=== PATIENT | male | born 1995 | race Native Hawaiian/Other Pacific Islander ===

== ENCOUNTER 2021-06-01 11:45 | Inpatient (IN) | payer SELFPAY ==
[~2021-06-01] VITALS: Ht 172.7 cm; Wt 84.1 kg
[2021-06-01 13:17] LABS: HEMOGLOBIN 15.7 g/dl (13.5-18.0); MEAN CELL VOLUME 85 fl (80.0-100.0); MEAN CORPUSCULAR HEMOGLOBIN 30 pg (27-31); MEAN CORPUSCULAR HGB CONC 35 g/dl (33.0-37.0); MEAN PLATELET VOLUME 11.1 fl (7.4-10.4); PLATELET COUNT 248 K/mm3 (130-400); RED BLOOD COUNT 5.31 M/mm3 (4.20-5.60); REDCELL DISTRIBUTION WIDTH-CV 13.6 % (11.5-14.5)
[2021-06-01 13:36] LABS: ALBUMIN 4.1 gm/dL (3.5-5.0); BAND 8 % (0-10); BILIRUBIN,TOTAL 1.1 mg/dL (0.2-1.2); C-REACTIVE PROTEIN 8.48 mg/dL (0.00-0.50); CALCIUM 9.4 mg/dL (8.4-10.2); CREATININE, serum 0.74 mg/dL (0.72-1.25); EOSINOPHIL 4 % (0-4); LYMPHOCYTE 7 % (20.0-51.0); NEUTROPHILS 74 % (42.0-75.2); PLATELET ESTIMATE NORMAL (NORMAL); POTASSIUM 4.3 mmol/L (3.5-4.5); TOTAL PROTEIN 8.7 gm/dL (6.2-8.1)
--- NOTE | 2021-06-01 16:23 | NUR ---
PT ARRIVED TO FLOOR, VANCOMYCIN CONTINUED, DR. CASANOVA VISITING PT
[2021-06-01 16:56] VITALS: BP 117/70; PULSE 85; TEMP 98.2
--- NOTE | 2021-06-01 18:59 | NUR ---
NORCO GIVEN FOR PAIN IN R HAND, OPEN TO AIR AT THIS TIME, ORTHO DISCUSSED ORDERS TO BE NPO MIDNIGHT AND ICE AND ELEVATE ARM.
--- NOTE | 2021-06-01 20:00 | NUR ---
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 Assessment complete. A&Ox4. Denies nausea/shortenss of breath. VS stable. Rating pain 2/10 on pain scale-described as constant throbbing. Has had pain meds and states he is okay with 2/10. Right hand noted to be swollen/red/warm-no drainage noted. 1.5cm closed laceration to the right ulnar side of hand. Plan of care discussed for ortho consult in AM, NPO at 0000 and elevation/ice application. Verbalizes understanding. Denies questions/concerns. Call light in reach. Will monitor.
[2021-06-01 20:29] VITALS: BP 118/70; PULSE 102; TEMP 98
--- NOTE | 2021-06-01 21:00 | NUR ---
Vancomycin Initial Dosing Pharmacy Note Ordering provider: Royce Izaguirre MD Indication/duration: SSTI (hand) x 3 days. Relevant comorbidities: N/A LABS: WBC = 18.7, SCr = 0.74 Recommendation: Will draw trough and follow levels. Loading dose: 1.5 grams Maintenance dose: 1.25 grams every 8 hours Trough goal: 10-15 ug/mL
--- NOTE | 2021-06-01 22:35 | NUR ---
C/O pain to right hand-rating pain 8/10 on pain scale-described as constant throbbing. [place] given per dr haddad.
[2021-06-02 00:34] VITALS: BP 107/67; PULSE 70; TEMP 98.3
[2021-06-02 03:42] VITALS: BP 101/65; PULSE 80; TEMP 97.9
--- NOTE | 2021-06-02 05:19 | NUR ---
Rested well this shift after receiving pain medications. Has remained NPO since midnight per ortho request. Hand elevated/Ice applied. Left hand IV flushes without difficulty. Denies current questions/concerns. Will monitor.
[2021-06-02 07:02] LABS: BASO # 0.1 K/mm3 (0.0-0.2); BASO % 0.6 % (0.0-2.0); EOS # 0.5 K/mm3 (0.0-0.7); EOS % 3.8 % (0.0-4.0); GRAN # 9.2 K/mm3 (1.4-6.5); GRAN % 74.1 % (42.2-75.2); HEMATOCRIT 42.4 % (42.0-52.0); HEMOGLOBIN 14.4 g/dl (13.5-18.0); LYMPH # 1.7 K/mm3 (1.2-3.4); LYMPH % 13.5 % (20.0-51.0); MEAN CELL VOLUME 86 fl (80.0-100.0); MEAN CORPUSCULAR HEMOGLOBIN 29 pg (27-31); MEAN CORPUSCULAR HGB CONC 34 g/dl (33.0-37.0); MEAN PLATELET VOLUME 11.2 fl (7.4-10.4); MONO # 0.9 K/mm3 (0.1-0.6); MONO % 7.5 % (1.7-9.3); PLATELET COUNT 223 K/mm3 (130-400); RED BLOOD COUNT 4.93 M/mm3 (4.20-5.60); REDCELL DISTRIBUTION WIDTH-CV 13.6 % (11.5-14.5)
[2021-06-02 07:24] LABS: ALBUMIN 3.4 gm/dL (3.5-5.0); CALCIUM 8.8 mg/dL (8.4-10.2); CREATININE, serum 0.72 mg/dL (0.72-1.25); MAGNESIUM 2.1 mg/dL (1.6-2.6); PHOSPHOROUS 3.6 mg/dL (2.3-4.7); POTASSIUM 4.1 mmol/L (3.5-4.5)
[2021-06-02 07:52] VITALS: BP 125/78; PULSE 86; TEMP 97.9
--- NOTE | 2021-06-02 09:30 | NUR ---
EDUCATED PT AND PT FAMILY ON POC, ELEVATED PT ARM ON PILLOWS WITH ICE, NO DRAINAGE FROM HAND, REDNESS DECREASED FROM YESTERDAY, PT STILL REPORTING PAIN DESPITE NORCO, ADDRESSED WITH DR. CASANOVA AND PERCOCET ORDERED, PROVIDED FOR PT, NO OTHER NEEDS
[2021-06-02 11:35] VITALS: BP 115/64; PULSE 83; TEMP 98
[2021-06-02 15:39] VITALS: BP 125/69; PULSE 85; TEMP 97.9
--- NOTE | 2021-06-02 15:39 | NUR ---
Kong met with the pt who stated their preference to return home once medically stable. The pt NKis their grandmother, Marianne, . The pt lives with his grandmother. The pt reports independent on all ADLS and does not use any DME. The pt still drives. The pt reports no NO PCP and is not interested in one due to not having health insurance. The pt gets his medications from [facility]. The pt reports no DPOA-HC and is not interested in one at this time. D/c: Home
--- NOTE | 2021-06-02 18:45 | NUR ---
NPO ORDER PLACED, ADDRESSED WITH DR. CASANOVA AND DIET ORDER PLACED.
--- NOTE | 2021-06-02 20:00 | NUR ---
Bedside shift report received, assumed care for shiftman. Assessment complete. A&Ox4. Denies nausea/shortness of breath. VS stable. Right ulnar side of hand with a 1.5cm laceration that is scabbed over. No drainage noted. Swelling appears to be less than last NOC shift. Redness appears the same as last NOC. Fresh ice pack applied and elevated on pillows. Plan of care discussed for this shift to include meds/pain control/ice/elevation/calling for questions/concerns. Verbalizes understanding/denies needs. Call light in reach. Will monitor.
[2021-06-02 20:25] VITALS: BP 110/62; PULSE 85; TEMP 98
[2021-06-03 00:04] VITALS: BP 117/70; PULSE 82; TEMP 98
[2021-06-03 03:58] VITALS: BP 112/71; PULSE 65; TEMP 97.8
--- NOTE | 2021-06-03 06:35 | NUR ---
Had an uneventful night. Received oxycodone/percoet for pain with good results. Ice/elevation entire shift. Right hand still remains red/warm and swollen. VS remained stable. Denies current needs. Call light in reach. Will monitor.
[2021-06-03 06:37] LABS: BASO # 0.1 K/mm3 (0.0-0.2); BASO % 0.6 % (0.0-2.0); EOS # 0.6 K/mm3 (0.0-0.7); EOS % 5.1 % (0.0-4.0); GRAN # 7.4 K/mm3 (1.4-6.5); GRAN % 65.8 % (42.2-75.2); HEMATOCRIT 44.2 % (42.0-52.0); LYMPH # 2.4 K/mm3 (1.2-3.4); LYMPH % 21.4 % (20.0-51.0); MEAN CELL VOLUME 87 fl (80.0-100.0); MEAN CORPUSCULAR HEMOGLOBIN 30 pg (27-31); MEAN CORPUSCULAR HGB CONC 34 g/dl (33.0-37.0); MEAN PLATELET VOLUME 10.9 fl (7.4-10.4); MONO # 0.8 K/mm3 (0.1-0.6); MONO % 6.7 % (1.7-9.3); PLATELET COUNT 257 K/mm3 (130-400); RED BLOOD COUNT 5.09 M/mm3 (4.20-5.60); REDCELL DISTRIBUTION WIDTH-CV 13.2 % (11.5-14.5)
[2021-06-03 06:59] LABS: ALBUMIN 3.5 gm/dL (3.5-5.0); CALCIUM 9.2 mg/dL (8.4-10.2); CREATININE, serum 0.76 mg/dL (0.72-1.25); MAGNESIUM 2.3 mg/dL (1.6-2.6); POTASSIUM 4.3 mmol/L (3.5-4.5)
[2021-06-03 07:43] VITALS: BP 105/73; PULSE 84; TEMP 98
--- NOTE | 2021-06-03 10:18 | NUR ---
[employer] PAST WRIST, ANX GIVEN, PAIN MEDICATION GIVEN, ASSESSMENT PERFORMED, R LIMB ELEVATED WITH ICE APPLIED, NO OTHER NEEDS
--- NOTE | 2021-06-03 11:10 | NUR ---
ATTEMPTED TO CALL CONSULT TO ID, NO ANSWER AT THIS TIME
[2021-06-03 12:01] VITALS: BP 121/75; PULSE 84; TEMP 98
--- NOTE | 2021-06-03 15:06 | NUR ---
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 No needs right now.
[2021-06-03 15:50] VITALS: BP 110/62; PULSE 67; TEMP 97.7
--- NOTE | 2021-06-03 17:54 | NUR ---
PAIN PILL GIVEN TO PT PER REQUEST, ICE REFILLED, ANX INFUSING, NO OTHER NEEDS
[2021-06-03 20:08] VITALS: BP 106/70; PULSE 83; TEMP 97.9
--- NOTE | 2021-06-03 22:09 | NUR ---
Patient sitting up in bed and watching TV upon enter the room. Patient A/Ox4. Patient reports pain to right hand 12/15. Patient's right arm remains elevated on the pillow. PRN Toradol given for pain. Patient denies SOB or N/V. Patient tolerating PO intake and independent in the room. Patient took a shower tonight. Ice pack applied to right hand. Call light in reach. Will continue to monitor.
[2021-06-04 00:56] VITALS: BP 113/75; PULSE 83; TEMP 98.2
--- NOTE | 2021-06-04 01:35 | NUR ---
Vancomycin Follow-up Pharmacy Note Current regimen: 1.25 g Q8H Vancomycin trough: 8.78 Adjustments: Change to 1.5 g Q8H
[2021-06-04 04:23] VITALS: BP 117/69; PULSE 68; TEMP 97.7
[2021-06-04 06:52] LABS: BASO # 0.1 K/mm3 (0.0-0.2); BASO % 0.7 % (0.0-2.0); EOS # 0.7 K/mm3 (0.0-0.7); EOS % 6.4 % (0.0-4.0); GRAN # 6.4 K/mm3 (1.4-6.5); GRAN % 60.8 % (42.2-75.2); HEMATOCRIT 42.1 % (42.0-52.0); HEMOGLOBIN 14.1 g/dl (13.5-18.0); LYMPH # 2.5 K/mm3 (1.2-3.4); LYMPH % 23.5 % (20.0-51.0); MEAN CELL VOLUME 87 fl (80.0-100.0); MEAN CORPUSCULAR HEMOGLOBIN 29 pg (27-31); MEAN CORPUSCULAR HGB CONC 34 g/dl (33.0-37.0); MEAN PLATELET VOLUME 11.5 fl (7.4-10.4); MONO # 0.8 K/mm3 (0.1-0.6); MONO % 7.9 % (1.7-9.3); PLATELET COUNT 272 K/mm3 (130-400); RED BLOOD COUNT 4.82 M/mm3 (4.20-5.60); REDCELL DISTRIBUTION WIDTH-CV 13.2 % (11.5-14.5)
[2021-06-04 07:06] LABS: ALBUMIN 3.2 gm/dL (3.5-5.0); CALCIUM 8.7 mg/dL (8.4-10.2); CREATININE, serum 0.75 mg/dL (0.72-1.25); MAGNESIUM 2.2 mg/dL (1.6-2.6); POTASSIUM 4.1 mmol/L (3.5-4.5)
[2021-06-04 07:37] VITALS: BP 95/75; PULSE 75; TEMP 97.6
--- NOTE | 2021-06-04 09:06 | NUR ---
Assessment completed, alert/oriented, vital signs stable and afebrile, WBC normalized today, he stated pain is improving, right hand/wrist redness and swelling also improving, blood cX NGTD, heart RRR/ dsital pulses are palpable, lungs CTA/ no resp.difficulty, he is eating and drinking, sitting up having breakfast now, Zosyn infusing, denies needs, will continue to monitor
[2021-06-04 11:47] VITALS: BP 117/67; PULSE 86; TEMP 97.7
[2021-06-04 16:11] VITALS: BP 118/72; PULSE 79; TEMP 98.9
--- NOTE | 2021-06-04 20:52 | NUR ---
Patient A/Ox4. Patient states pain to his right hand improving a little bit and not hurting as much as other days. Zosyn currently running per AUG. Ice pack provided to right hand/wrist area. Right arm remains elevated on a pillow. Call light in reach. Will continue to monitor.
[2021-06-04 20:58] VITALS: BP 111/62; PULSE 76; TEMP 97.9
[2021-06-05 00:42] VITALS: BP 106/62; PULSE 69; TEMP 98
[2021-06-05 04:36] VITALS: BP 103/63; PULSE 61; TEMP 98
[2021-06-05 06:30] LABS: BASO # 0.1 K/mm3 (0.0-0.2); BASO % 0.8 % (0.0-2.0); EOS # 0.7 K/mm3 (0.0-0.7); GRAN # 5.2 K/mm3 (1.4-6.5); GRAN % 58.3 % (42.2-75.2); HEMATOCRIT 41.7 % (42.0-52.0); HEMOGLOBIN 13.9 g/dl (13.5-18.0); LYMPH # 2.2 K/mm3 (1.2-3.4); LYMPH % 24.8 % (20.0-51.0); MEAN CELL VOLUME 86 fl (80.0-100.0); MEAN CORPUSCULAR HEMOGLOBIN 29 pg (27-31); MEAN CORPUSCULAR HGB CONC 33 g/dl (33.0-37.0); MEAN PLATELET VOLUME 10.8 fl (7.4-10.4); MONO # 0.6 K/mm3 (0.1-0.6); MONO % 7.2 % (1.7-9.3); PLATELET COUNT 273 K/mm3 (130-400); RED BLOOD COUNT 4.84 M/mm3 (4.20-5.60); REDCELL DISTRIBUTION WIDTH-CV 12.9 % (11.5-14.5)
[2021-06-05 06:53] LABS: ALBUMIN 3.3 gm/dL (3.5-5.0); CREATININE, serum 0.76 mg/dL (0.72-1.25); MAGNESIUM 2.1 mg/dL (1.6-2.6); PHOSPHOROUS 3.8 mg/dL (2.3-4.7); POTASSIUM 4.1 mmol/L (3.5-4.5)
[2021-06-05 07:46] VITALS: BP 120/51; PULSE 69; TEMP 97.9
--- NOTE | 2021-06-05 10:22 | NUR ---
Assessment completed, alert/oriented, vital signs stable, reports pain still 5/10 to right hand, redness and swelling improving, WBC normalized, afebrile, IV zosyn infusing at this time, he is eating and drinking and denies any N/V, heart RRR/ distal pulses are palpable, lungs CTA/ Denies resp.difficutly, independent in his room, will continue to monitor
[2021-06-05] MEDS ORDERED: CIPRO 500MG TA500 MG PO (10:39)
[2021-06-05] MEDS ORDERED: DOXYCYCLINE HY100 MG PO (10:40)
[2021-06-05 12:06] VITALS: BP 111/74; PULSE 75; TEMP 98.1
--- NOTE | 2021-06-05 13:05 | NUR ---
Discharge isntructions reviewed with the patient, instructed to follow up with PCP at [facility] as we scheduled for him, instructed to take abx as prescribed, meds sent to [facility] for him, IV and tele removed, ambulatory and leaving with his family member
== END 2021-06-05 13:23 | disposition home or self-care (01) | DRG 603 ==
LOC: COL.ER 11:45 → MEDICAL 15:07
PROVIDERS: Nurse Practitioner; ADMIT Internal Medicine
DX: L03.113 Cellulitis of right upper limb (principal); F17.210 Nicotine dependence, cigarettes, uncomplicated
CPT/HCPCS: 99231-AI; 99232-AI; 99233-AI; 99238; G0378; J1644; J1885; J2270; J2543; J3370; J7030; J7050

== ENCOUNTER 2021-11-29 17:01 | Emergency (ER) | payer SELFPAY ==
[~2021-11-29] VITALS: Ht 172.7 cm; Wt 83.2 kg
[~2021-11-29 17:01] MED LIST: CIPRO 500MG TA500 MG PO; DOXYCYCLINE HY100 MG PO
[2021-11-29 17:38] VITALS: TEMP 98.4
[2021-11-29 21:38] VITALS: BP 115/83; PULSE 84
== END 2021-11-29 21:46 | disposition home or self-care (01) ==
LOC: COL.ER 17:01
DX: T23.241A Burn of second degree of multiple right fingers (nail), including thumb, initial encounter (principal); T23.242A Burn of second degree of multiple left fingers (nail), including thumb, initial encounter; X15.0XXA Contact with hot stove (kitchen), initial encounter; Y92.59 Other trade areas as the place of occurrence of the external cause; Y99.0 Civilian activity done for income or pay